=== PATIENT | female | born 1950 | race Caucasian/White ===

== ENCOUNTER 2021-02-01 10:40 | Day surgery (SDC) | payer MEDICARE, BC ==
[2021-02-01] MEDS: Polymyxin B/Trimethoprim 10 ML Bottle EYELF SCH ×4 (10:55→13:26)
[2021-02-01] MEDS: Brimonidine 0.2% Ophth Soln 5 ML Bottle EYELF SCH ×4 (11:00→13:25)
[2021-02-01] MEDS: Phenylephrine 2.5% Ophth Soln 2 ML Bot EYELF SCH ×6 (11:05→13:24)
[2021-02-01] MEDS: Tropicamide 1% Ophth Soln 15 ML Bottle EYELF SCH ×4 (11:10→11:55)
--- NOTE | 2021-02-01 11:11 | PCM.PREANE ---
Preanesthetic Assessment - Procedure Proposed Procedure: left eye cataract extraction with IOL - Anesthesia/Transfusion/Family Hx Anesthesia History: Prior Anesthesia Without Reaction Family History of Anesthesia Reaction: No Transfusion History: No Prior Transfusion(s) - Review of Systems General: No Symptoms Pulmonary: No Symptoms Cardiovascular: Dyspnea on Exertion Gastrointestinal: No Symptoms Neurological: No Symptoms Other: Reports: Thyroid Problems (hypothyroid) - Physical Assessment NPO Status Date: 01/31/21 NPO Status Time: 00:00 Height: 1.68 m Weight: 77.111 kg ASA Class: 2 Mental Status: Alert & Oriented x3 Airway Class: Mallampati = 2 Dentition: Reports: Partial, Caries Thyro-Mental Finger Breadths: 3 Mouth Opening Finger Breadths: 3 ROM/Head Extension: Full Lungs: Clear to Auscultation, Normal Respiratory Effort Cardiovascular: Regular Rate, Regular Rhythm - Allergies Allergies/Adverse Reactions: Allergies Allergy/AdvReac Type Severity Reaction Status Date / Time No Known Allergies Allergy Verified 01/28/21 11:59 - Blood Blood Available: No Product(s) Available: None - Anesthesia Plan Pre-Op Medication Ordered: None - Acknowledgements Anesthesia Type Planned: MAC Pt an Appropriate Candidate for the Planned Anesthesia: Yes Alternatives and Risks of Anesthesia Discussed w Pt/Guardian: Yes Pt/Guardian Understands and Agrees with Anesthesia Plan: Yes PreAnesthesia Questionnaire Gastrointestinal History: Reports: GERD - SUBSTANCE USE Tobacco Use Status *Q: Former Tobacco User Tobacco Use Within Last Twelve Months: No Second Hand Smoke Exposure: No Days Per Week of Alcohol Use: 1 Number of Drinks Per Day: 0 Total Drinks Per Week: 0 Recreational Drug Use History: No - HOME MEDS Home Medications: Home Meds Albuterol Sulfate [Albuterol Sulfate HFA] 1 puff INH ASDIRECTED PRN 01/28/21 [History] Alendronate [Fosamax] 1 tab PO DAILY 01/28/21 [History] Ascorbic Acid [Vitamin C] 1 cap PO DAILY 01/28/21 [History] Calcium Carbonate [Calcium] 600 mg PO DAILY 01/28/21 [History] Cyanocobalamin (Vitamin B12) [Vitamin B12] 1 tab PO DAILY 01/28/21 [History] Levothyroxine Sodium 88 mcg PO DAILY 01/28/21 [History] Montelukast [Singulair] 10 mg PO DAILY 01/28/21 [History] Non-Formulary Medication [NF Drug] 1 puff INH ASDIRECTED 01/28/21 [History] Omeprazole 1 cap PO DAILY 01/28/21 [History] Potassium Gluconate [Potassium] 1 tab PO DAILY 01/28/21 [History] Turmeric/Turmeric Root Extract [Turmeric 450-50 mg Capsule] 1 cap PO DAILY 01/28/21 [History] - CURRENT (IN HOUSE) MEDS Current Meds: Current Medications Brimonidine Tartrate (Brimonidine 0.2% Ophth Soln 5 Ml Bottle) 0 ml EYELF ASDIRECTED ODALYS Stop: 02/01/21 18:00 Last Admin: 02/01/21 11:00 Dose: 1 drop Documented by: Cefuroxime Sodium (Cefuroxime 10 Mg/Ml Syringe) 0 mg EYELF ASDIRECTED ODALYS Stop: 02/01/21 18:00 Lidocaine HCl (Lidocaine 1% Pf 2 Ml Sdv) 0 ml INJECT ASDIRECTED ODALYS Stop: 02/01/21 18:00 Phenylephrine HCl (Phenylephrine 2.5% Ophth Soln 2 Ml Bot) 0 ml EYELF ASDIRECTED ODALYS Stop: 02/01/21 18:00 Pilocarpine HCl (Pilocarpine 4% Ophth Soln 15 Ml Bot) 0 ml EYELF ASDIRECTED ODALYS Stop: 02/01/21 18:00 Polymyxin/Trimethoprim Sulfate (Polymyxin B/Trimethoprim 10 Ml Bottle) 0 ml EYELF ASDIRECTED ODALYS Stop: 02/01/21 18:00 Last Admin: 02/01/21 10:55 Dose: 1 drop Documented by: Tetracaine HCl (Tetracaine Hcl/Pf 0.5% 4 Ml Bottle) 0 ml EYEBOTH ASDIRECTED ODALYS Stop: 02/01/21 18:00 Tropicamide (Tropicamide 1% Ophth Soln 15 Ml Bottle) 0 ml EYELF ASDIRECTED ODALYS Stop: 02/01/21 18:00
[2021-02-01] MEDS: Tetracaine HCl/PF 0.5% 4 ML Bottle EYEBOTH SCH ×3 (12:05→13:24)
[2021-02-01] MEDS: Lidocaine 1% PF 2 ML SDV INJECT SCH ×2 (12:23→13:25)
[2021-02-01] MEDS: Cefuroxime 10 MG/ML SYRINGE EYELF SCH ×2 (12:34→13:25)
[2021-02-01] MEDS: Pilocarpine 4% Ophth Soln 15 ML Bot EYELF SCH ×2 (12:35→13:26)
--- NOTE | 2021-02-01 12:37 | PCM48HPAN ---
Post Anesthesia Note - EVALUATION WITHIN 48HRS OF ANESTHETIC Vital Signs in Normal Range: Yes Patient Participated in Evaluation: Yes Respiratory Function Stable: Yes Airway Patent: Yes Cardiovascular Function Stable: Yes Hydration Status Stable: Yes Pain Control Satisfactory: Yes Nausea and Vomiting Control Satisfactory: Yes Mental Status Recovered: Yes
== END 2021-02-01 12:51 | disposition home or self-care (01) ==
LOC: JD.SDS 10:40
PROVIDERS: ATTEND Ophthalmology
DX: H25.813 Combined forms of age-related cataract, bilateral (principal); H35.373 Puckering of macula, bilateral; H40.053 Ocular hypertension, bilateral; H35.3131 Nonexudative age-related macular degeneration, bilateral, early dry stage; H16.103 Unspecified superficial keratitis, bilateral; H16.223 Keratoconjunctivitis sicca, not specified as Sjogren's, bilateral; E07.9 Disorder of thyroid, unspecified; Z98.890 Other specified postprocedural states; Z79.890 Hormone replacement therapy; Z79.899 Other long term (current) drug therapy
CPT/HCPCS: 66984; J0697; C1780

== ENCOUNTER 2021-03-08 11:11 | Day surgery (SDC) | payer MEDICARE, BC ==
[~2021-03-08 11:11] MED LIST: Cefuroxime 10 MG/ML SYRINGE EYERT SCH; Lidocaine 1% PF 2 ML SDV INJECT SCH; Pilocarpine 4% Ophth Soln 15 ML Bot EYERT SCH
[2021-03-08] MEDS: Polymyxin B/Trimethoprim 10 ML Bottle EYERT SCH ×3 (11:20→13:33)
[2021-03-08] MEDS: Brimonidine 0.2% Ophth Soln 5 ML Bottle EYERT SCH ×3 (11:27→13:33)
[2021-03-08] MEDS: Phenylephrine 2.5% Ophth Soln 2 ML Bot EYERT SCH ×5 (11:36→13:11)
[2021-03-08] MEDS: Tropicamide 1% Ophth Soln 15 ML Bottle EYERT SCH ×4 (11:43→12:35)
--- NOTE | 2021-03-08 12:01 | PCM.PREANE ---
Preanesthetic Assessment - Procedure Proposed Procedure: right cataract - Anesthesia/Transfusion/Family Hx Anesthesia History: Prior Anesthesia Without Reaction Family History of Anesthesia Reaction: No Transfusion History: No Prior Transfusion(s) - Review of Systems General: No Symptoms Pulmonary: No Symptoms Cardiovascular: No Symptoms Gastrointestinal: No Symptoms Neurological: No Symptoms Other: Reports: Thyroid Problems, Sinus Problem - Physical Assessment NPO Status Date: 03/07/21 NPO Status Time: 21:00 Vital Signs: Last Vital Signs Temp 99.0 F 03/08/21 11:10 Pulse 65 03/08/21 11:10 Resp 16 03/08/21 11:10 BP 110/63 03/08/21 11:10 Pulse Ox 93 L 03/08/21 11:10 Height: 5 ft 6 in Weight: 77.111 kg ASA Class: 2 Mental Status: Alert & Oriented x3 Airway Class: Mallampati = 1 Dentition: Reports: Partial (top and bottom) Thyro-Mental Finger Breadths: 3 Mouth Opening Finger Breadths: 3 ROM/Head Extension: Full Lungs: Clear to Auscultation, Normal Respiratory Effort Cardiovascular: Regular Rate, Regular Rhythm - Allergies Allergies/Adverse Reactions: Allergies Allergy/AdvReac Type Severity Reaction Status Date / Time No Known Allergies Allergy Verified 03/08/21 11:47 - Blood Blood Available: No - Acknowledgements Anesthesia Type Planned: MAC Pt an Appropriate Candidate for the Planned Anesthesia: Yes Alternatives and Risks of Anesthesia Discussed w Pt/Guardian: Yes Pt/Guardian Understands and Agrees with Anesthesia Plan: Yes PreAnesthesia Questionnaire Cardiovascular History: Reports: None Respiratory History: Reports: Asthma Gastrointestinal History: Reports: GERD Musculoskeletal History: Reports: Arthritis Oncologic (Cancer) History: Reports: None - SUBSTANCE USE Tobacco Use Status *Q: Former Tobacco User Tobacco Use Within Last Twelve Months: No Second Hand Smoke Exposure: No Days Per Week of Alcohol Use: 1 Recreational Drug Use History: No - HOME MEDS Home Medications: Home Meds Albuterol Sulfate [Albuterol Sulfate HFA] 1 puff INH ASDIRECTED PRN 01/28/21 [History] Alendronate [Fosamax] 1 tab PO DAILY 01/28/21 [History] Ascorbic Acid [Vitamin C] 1 cap PO DAILY 01/28/21 [History] Calcium Carbonate [Calcium] 600 mg PO DAILY 01/28/21 [History] Cyanocobalamin (Vitamin B12) [Vitamin B12] 1 tab PO DAILY 01/28/21 [History] Levothyroxine Sodium 88 mcg PO DAILY 01/28/21 [History] Montelukast [Singulair] 10 mg PO DAILY 01/28/21 [History] Non-Formulary Medication [NF Drug] 1 puff INH ASDIRECTED 01/28/21 [History] Omeprazole 1 cap PO DAILY 01/28/21 [History] Potassium Gluconate [Potassium] 1 tab PO DAILY 01/28/21 [History] Turmeric/Turmeric Root Extract [Turmeric 450-50 mg Capsule] 1 cap PO DAILY 01/28/21 [History] - CURRENT (IN HOUSE) MEDS Current Meds: Current Medications Brimonidine Tartrate (Brimonidine 0.2% Ophth Soln 5 Ml Bottle) 0 ml EYERT ASDIRECTED ODALYS Stop: 03/08/21 18:00 Last Admin: 03/08/21 11:27 Dose: 1 drop Documented by: Cefuroxime Sodium (Cefuroxime 10 Mg/Ml Syringe) 0 mg EYERT ASDIRECTED ODALYS Stop: 03/08/21 18:00 Lidocaine HCl (Lidocaine 1% Pf 2 Ml Sdv) 0 ml INJECT ASDIRECTED ODALYS Stop: 03/08/21 18:00 Phenylephrine HCl (Phenylephrine 2.5% Ophth Soln 2 Ml Bot) 0 ml EYERT ASDIRECTED ODALYS Stop: 03/08/21 18:00 Last Admin: 03/08/21 11:49 Dose: 1 drop Documented by: Pilocarpine HCl (Pilocarpine 4% Ophth Soln 15 Ml Bot) 0 ml EYERT ASDIRECTED ODALYS Stop: 03/08/21 18:00 Polymyxin/Trimethoprim Sulfate (Polymyxin B/Trimethoprim 10 Ml Bottle) 0 ml EYERT ASDIRECTED ODALYS Stop: 03/08/21 18:00 Last Admin: 03/08/21 11:20 Dose: 1 drop Documented by: Tetracaine HCl (Tetracaine Hcl/Pf 0.5% 4 Ml Bottle) 0 ml EYEBOTH ASDIRECTED ODALYS Stop: 03/08/21 18:00 Tropicamide (Tropicamide 1% Ophth Soln 15 Ml Bottle) 0 ml EYERT ASDIRECTED ODALYS Stop: 03/08/21 18:00 Last Admin: 03/08/21 11:53 Dose: 1 drop Documented by:
[2021-03-08] MEDS: Tetracaine HCl/PF 0.5% 4 ML Bottle EYEBOTH SCH ×4 (12:42→13:26)
--- NOTE | 2021-03-08 13:35 | PCM48HPAN ---
Post Anesthesia Note - EVALUATION WITHIN 48HRS OF ANESTHETIC Vital Signs in Normal Range: Yes Patient Participated in Evaluation: Yes Respiratory Function Stable: Yes Airway Patent: Yes Cardiovascular Function Stable: Yes Hydration Status Stable: Yes Pain Control Satisfactory: Yes Nausea and Vomiting Control Satisfactory: Yes Mental Status Recovered: Yes Vital Signs: Last Vital Signs Temp 37.2 C 03/08/21 11:10 Pulse 65 03/08/21 11:10 Resp 16 03/08/21 11:10 BP 110/63 03/08/21 11:10 Pulse Ox 93 L 03/08/21 11:10
== END 2021-03-08 13:42 | disposition home or self-care (01) ==
LOC: JD.SDS 11:11
PROVIDERS: ATTEND Ophthalmology
DX: H25.811 Combined forms of age-related cataract, right eye (principal); K21.9 Gastro-esophageal reflux disease without esophagitis; Z87.891 Personal history of nicotine dependence; Z79.899 Other long term (current) drug therapy
CPT/HCPCS: 66984; J0697; C1780